=== PATIENT | female | born 1985 | race Caucasian/White ===

== ENCOUNTER 2019-07-09 11:00 | Inpatient (IN) | payer MEDICAID ==
[2019-07-17] MEDS ORDERED: LIDOCAINE 0.5% (PF) 5 MG/ML (50 ML SDV) SQ PRN (06:04)
[2019-07-17] MEDS ORDERED: TERBUTALINE 1 MG/ML VIAL SQ PRN (06:04)
[2019-07-17] MEDS ORDERED: METHYLERGONOVINE 0.2 MG/ML 1 ML AMP IM PRN (06:04)
[2019-07-17] MEDS ORDERED: OXYTOCIN 10 UNIT/ML 1 ML VIAL IM PRN (06:04)
[2019-07-17] MEDS ORDERED: CARBOPROST TROMETHAMINE 250 MCG/ML 1 ML AMP IM PRN (06:04)
[2019-07-17] MEDS ORDERED: OXYTOCIN 30 UNITS/500 ML NS 30 UNIT in SALINE 1 500ML.BAG IV SCH (06:15)
[2019-07-17 06:23] VITALS: BMI 28.3
[2019-07-17] MEDS: LACTATED RINGERS 1,000 ML IV SCH ×2 (06:25→09:15)
[2019-07-17 06:29] LABS: Basophils # (A) 0.1 k/uL (0-0.2); Basophils % (A) 1 %; Eosinophils # (A) 0.1 k/uL (0-0.7); Eosinophils % (A) 1 %; HCT 40.3 % (34.0-46.0); Lymphocytes # (A) 1.9 k/uL (1.0-4.8); Lymphocytes % (A) 20 %; MCHC 34.9 g/dL (31.0-37.0); MCV 94.6 fL (80.0-100.0); Mean Platelet Volume 7.4; Monocytes # (A) 0.5 k/uL (0-1.0); Monocytes % (A) 6 %; Neutrophils # (A) 7.1 k/uL (1.3-7.7); Neutrophils % (A) 72 %; Platelet Count 248 k/uL (150-450); RBC 4.26 m/uL (3.80-5.40); RDW 13.9 % (11.5-15.5); WBC 9.8 k/uL (3.8-10.6)
--- NOTE | 2019-07-17 08:22 | P.HPOB ---
History of Present Illness H&P Date: 07/17/19 Chief Complaint: Postdates This is a 34-year-old 3 para 2002 woman with an estimated due date of 07/07/2019 based on first trimester ultrasound. She is admitted at 41-3/7 weeks gestation for scheduled induction of labor although she had spontaneous rupture of membranes prior to admission this morning. She has been having on spontaneous and painful contractions irregularly throughout the night. She denies vaginal bleeding and reports the fluid was clear. Her otherwise has been uncomplicated and testing has been reassuring. Her obstetric history is significant for 2 previous normal spontaneous vaginal deliveries in 2012 and 2015. Laboratory data: Blood type O+, antibody screen negative, rubella immune, VDRL nonreactive, hepatitis B surface antigen negative, HIV negative, glucose tolerance testing within normal limits, group B strep negative. Review of Systems All systems: negative Past Medical History Past Medical History: No Reported History Additional Past Medical History / Comment(s): 2 History of Any Multi-Drug Resistant Organisms: None Reported Past Surgical History: No Surgical Hx Reported Past Anesthesia/Blood Transfusion Reactions: No Reported Reaction Past Psychological History: No Psychological Hx Reported Smoking Status: Never smoker Past Alcohol Use History: None Reported Past Drug Use History: None Reported - Past Family History Mother Family Medical History: No Reported History Father Family Medical History: Cancer, Hypertension Additional Family Medical History / Comment(s): Prostate Cancer, Parkinsons Disease, AVM Medications and Allergies Home Medications Medication Instructions Recorded Confirmed Type Eop-Kgby-Apdtv Acid 1 tab PO DAILY 01/28/16 07/17/19 History [-U Capsule (formulary)] Allergies Allergy/AdvReac Type Severity Reaction Status Date / Time No Known Allergies Allergy Verified 07/17/19 06:03 Exam Vital Signs Temp Pulse Resp BP Pulse Ox 07/17/19 06:17 98.1 F 69 16 147/94 100 Intake and Output 07/16/19 07/17/19 07/17/19 22:59 06:59 14:59 Other: Weight 72.575 kg Targeted physical exam is performed. heart tones are currently category 1 and she is chelly every 2-4 minutes. On pelvic exam the cervix is 4 cm dilated 90% effaced and the vertex is well applied in the -2 station. Clear fluid is noted. Results Result Diagrams: 07/17/19 06:19 Assessment and Plan (1) Post-dates Current Visit: Yes Status: Acute Code(s): O48.0 - POST-TERM SNOMED Code(s): 50877223 (2) Spontaneous rupture of membranes Current Visit: Yes Status: Acute Code(s): JUT4282 - SNOMED Code(s): 325039377 Plan: This is a 34-year-old 3 para 2002 woman who is admitted at 41-3/7 weeks gestation for induction of labor. She had spontaneous rupture of membranes prior to admission this morning. status is currently reassuring. She may have an epidural anesthetic upon request. She is group B strep negative and Rh+. I anticipate normal spontaneous vaginal delivery.
[2019-07-17] MEDS ORDERED: SODIUM CHLORIDE 0.9% 100 ML BAG ONE (09:00)
[2019-07-17] MEDS ORDERED: fentaNYL (PF) 50 MCG/ML 5 ML AMP ONE (09:00)
[2019-07-17] MEDS ORDERED: ROPIVACAINE 5MG/ML 20ML VIAL ONE (09:00)
[2019-07-17] MEDS ORDERED: ZOLPIDEM 5 MG TAB PO PRN (11:15)
[2019-07-17] MEDS ORDERED: WITCH HAZEL 1 EACH MED..PAD TOPICAL PRN (11:15)
[2019-07-17] MEDS ORDERED: diphenhydrAMINE 50 MG/ML 1 ML VIAL IVP PRN ×2 (11:15)
[2019-07-17] MEDS ORDERED: HYDROCORTISONE 2.5% RECTAL CREAM 30 GM TUBE RECTAL PRN (11:15)
[2019-07-17] MEDS ORDERED: diphenhydrAMINE 25 MG CAP PO PRN (11:15)
[2019-07-17] MEDS ORDERED: OXYTOCIN 20 UNITS/1000 ML NS 1,000 ML IV SCH (11:15)
[2019-07-17] MEDS ORDERED: BENZOCAINE/MENTHOL SPRAY 1 GM/SPRAY AEROSOL TOPICAL PRN (11:15)
[2019-07-17] MEDS ORDERED: LANOLIN CREAM 5 GM TUBE TOPICAL PRN (11:15)
[2019-07-17] MEDS ORDERED: ACETAMINOPHEN TAB 325 MG TAB PO PRN (11:15)
[2019-07-17] MEDS ORDERED: SIMETHICONE 80 MG CHEWABLE PO PRN (11:15)
[2019-07-17] MEDS ORDERED: diphenhydrAMINE 50 MG CAP PO PRN (11:15)
--- NOTE | 2019-07-17 11:18 | P.PROBDLV ---
Vaginal Delivery Note - . Vaginal Delivery Note: Findings: Male infant in the vertex left occiput anterior position with a nuchal cord 1. Apgars of 8 at 1 minute and 9 at 5 minutes. Weight pending. Intact, small, three-vessel cord placenta. EBL 150 mL's. Delivery summary: This is a 34-year-old 3 para 2001 woman who is admitted at 41-3/7 weeks gestation for postdates induction of labor. She had spontaneous rupture of membranes prior to presentation this morning. Clear fluid was reported. Following admission she then received Pitocin on induction per protocol. She received an epidural anesthetic. She made rapid progression to complete cervical dilation. She commenced pushing with excellent maternal effort. She had a rapid second stage of labor and when she was she was repositioned, prepped and draped in the modified Karolyn position. With additional maternal effort the head did deliver from the left occiput anterior position. A tight nuchal cord 1 was easily reduced. The anterior followed by the posterior shoulders were then delivered onto the field and the nose and mo uth were bulb suctioned. The infant was placed on the maternal abdomen. The cord was clamped and cut. Apgars were 8 at 1 minute and 9 at 5 minutes. Weight is pending. An intact, three-vessel cord placenta was expressed after a rapid third stage of labor. The uterus was then massaged and was noted to be firm below the level of the umbilicus. Pitocin intravenously was administered. The vagina and cervix were inspected and no lacerations were noted. Both mother and infant were doing well post delivery in the room. Counts were correct.
[2019-07-17] MEDS: IBUPROFEN 600 MG TAB PO PRN ×2 (12:46→19:37)
[2019-07-17] MEDS: SENNOSIDES-DOCUSATE SODIUM 1 EACH TAB PO SCH (19:37)
[2019-07-17 20:58] VITALS: RESP 18
[2019-07-18] MEDS: IBUPROFEN 600 MG TAB PO PRN ×2 (02:50→09:05)
[2019-07-18] MEDS: LACTATED RINGERS 1,000 ML IV SCH (02:58)
[2019-07-18 05:59] LABS: Basophils % (A) 0 %; Eosinophils # (A) 0.1 k/uL (0-0.7); Eosinophils % (A) 1 %; HCT 34.5 % (34.0-46.0); Lymphocytes # (A) 1.9 k/uL (1.0-4.8); Lymphocytes % (A) 20 %; MCH 33.5 pg (25.0-35.0); MCHC 34.9 g/dL (31.0-37.0); MCV 96.1 fL (80.0-100.0); Mean Platelet Volume 7.5; Monocytes # (A) 0.6 k/uL (0-1.0); Monocytes % (A) 6 %; Neutrophils # (A) 6.8 k/uL (1.3-7.7); Neutrophils % (A) 71 %; Platelet Count 205 k/uL (150-450); RBC 3.59 m/uL (3.80-5.40); RDW 13.7 % (11.5-15.5); WBC 9.6 k/uL (3.8-10.6)
--- NOTE | 2019-07-18 07:56 | P.DS ---
Providers Date of admission: 07/17/19 05:59 Expected date of discharge: 07/18/19 Attending physician: Aliyah Sullivan Primary care physician: Stated None - Discharge Diagnosis(es) (1) Post-dates Current Visit: Yes Status: Acute (2) Spontaneous rupture of membranes Current Visit: Yes Status: Acute (3) Normal spontaneous vaginal delivery Current Visit: No Status: Acute Hospital Course: This is a 34-year-old 3 now para 3 woman who is admitted at 41-3/7 weeks gestation for induction of labor. She had spontaneous rupture of membranes prior to presentation that morning. Following admission she received Pitocin induction of labor. She had an epidural anesthetic. She had a rapid first stage of labor. She went on to deliver a liveborn male weighing 6 lbs. 11 oz. with Apgars of 8 at 1 minute and 9 at 5 minutes over an intact perineum. There was a nuchal cord 1. The patient's course was entirely unremarkable. By day #1 she was ambulating and voiding without d ifficulty. She is breast feeding successfully. Her lochia was minimal. And her vital signs were stable. She was therefore discharged home with routine instructions for care and follow-up. Procedures: Normal spontaneous vaginal delivery Patient Condition at Discharge: Good Plan - Discharge Summary New Discharge Prescriptions: No Action Xta-Sjwm-Iygrc Acid [-U Capsule (formulary)] 1 tab PO DAILY Discharge Medication List Ees-Fcgu-Sbgyg Acid [-U Capsule (formulary)] 1 tab PO DAILY 01/28/16 [History] Follow up Appointment(s)/Referral(s): Aliyah Sullivan MD [STAFF PHYSICIAN] - 6 Weeks Activity/Diet/Wound Care/Special Instructions: Follow-up in the office in 6 weeks . Call with any concerning signs or symptoms including heavy vaginal bleeding, severe abdominal pain, fever greater than 101, swelling or redness of the lower extremities, foul vaginal discharge, or signs of depression. Nothing in the vagina for 6 weeks after delivery, specifically no intercourse. Discharge Disposition: HOME SELF-CARE
[2019-07-18] MEDS: SENNOSIDES-DOCUSATE SODIUM 1 EACH TAB PO SCH (09:05)
[2019-07-18 09:41] VITALS: BP 126/73; PULSE 74; TEMP 97.8
== END 2019-07-18 12:33 | disposition home or self-care (01) | DRG 807 ==
LOC: 4FBP 07-17 05:59
PROVIDERS: ADMIT Obstetrics & Gynecology; ATTEND Obstetrics & Gynecology
PROC: 00HU33Z Insertion of Infusion Device into Spinal Canal, Percutaneous Approach (ICD-10-PCS; principal; 2019-07-17)
PROC: 3E0R3BZ Introduction of Anesthetic Agent into Spinal Canal, Percutaneous Approach (ICD-10-PCS; principal; 2019-07-17)
PROC: 10E0XZZ Delivery of Products of Conception, External Approach (ICD-10-PCS; principal; 2019-07-17)
PROC: 3E033VJ Introduction of Other Hormone into Peripheral Vein, Percutaneous Approach (ICD-10-PCS; principal; 2019-07-17)
DX: O48.0 Post-term pregnancy (principal); Z37.0 Single live birth; O69.1XX0 Labor and delivery complicated by cord around neck, with compression, not applicable or unspecified; Z3A.41 41 weeks gestation of pregnancy; Z79.899 Other long term (current) drug therapy; Z82.49 Family history of ischemic heart disease and other diseases of the circulatory system; Z82.0 Family history of epilepsy and other diseases of the nervous system; Z82.79 Family history of other congenital malformations, deformations and chromosomal abnormalities; Z80.42 Family history of malignant neoplasm of prostate
CPT/HCPCS: 85025; 86850; 86900; 86901